=== PATIENT | female | born 1990 | race Caucasian/White ===

== ENCOUNTER 2019-07-04 11:04 | Emergency (ER) | payer OTHER ==
--- NOTE | 2019-07-04 18:33 | EDM.PDOC ---
ED HPI GENERAL MEDICAL PROBLEM - General Chief Complaint: General Stated Complaint: CHEST PAIN, FEVER, CHILL Time Seen by Provider: 07/04/19 11:13 Source of Information: Reports: Patient - History of Present Illness INITIAL COMMENTS - FREE TEXT/NARRATIVE: Patient visiting family with history of developing cold symptoms five days ago that have worsened over past 24 hours. Hving pain in lower anterior ribs with coughing initially and now even at rest. Has productive cough and generalized achiness. No flu vaccine this year. Cough productive of green phlegm. Onset: Gradual, Other (June 30) Duration: Day(s): (5 Days), Getting Worse Location: Reports: Chest Quality: Reports: Sharp Severity: Moderate Improves with: Reports: Rest Worsens with: Reports: Movement Context: Reports: Other (Frequent coughing spells) Associated Symptoms: Reports: Cough, Fever/Chills, Malaise Treatments [employer]ATORY ASSISTANT: Reports: NSAIDS, Other (see below) (Mucinex) Bilateral Abdomen Pain Score (Numeric/FACES): 8 - Related Data Allergies Allergy/AdvReac Type Severity Reaction Status Date / Time No Known Allergies Allergy Verified 07/04/19 18:39 Social & Family History - Tobacco Use Smoking Status *Q: Former Smoker ED ROS GENERAL - Review of Systems Review Of Systems: See Below Constitutional: Reports: Fever, Chills, Malaise HEENT: Reports: Rhinitis Respiratory: Reports: Wheezing, Cough, Sputum Cardiovascular: Reports: Chest Pain. Denies: Palpitations, Syncope Endocrine: Reports: Fatigue ED EXAM, GENERAL - Physical Exam Exam: See Below Exam Limited By: No Limitations General Appearance: Alert, No Apparent Distress Ears: Normal External Exam, Normal Canal, Hearing Grossly Normal, Normal TMs Nose: Normal Inspection, Normal Mucosa Throat/Mouth: Normal Inspection, Normal Lips, Normal Teeth, Normal Gums, Normal Oropharynx, Normal Voice, No Airway Compromise Head: Atraumatic, Normocephalic Neck: Normal Inspection, Non-Tender, Full Range of Motion Cardiovascular: Regular Rate, Rhythm, No Gallop, No Murmur GI/Abdominal: Normal Bowel Sounds, Soft, Non-Tender Extremities: Normal Inspection, Normal Range of Motion, Non-Tender Neurological: Alert, Oriented, Normal Gait Psychiatric: Normal Affect, Normal Mood Skin Exam: No Rash Lymphatic: No Adenopathy Course - Vital Signs Last Recorded V/S: Last Vital Signs Temp 98.9 F 12/27/19 11:34 Pulse 86 07/04/19 11:34 Resp 16 07/04/19 11:34 BP 134/92 H 07/04/19 11:34 Pulse Ox 100 07/04/19 11:34 - Orders/Labs/Meds Labs: Influenza B testing is poistive Meds: Prescribed Tylenol #3 1 tablet every 4-6 hours as, needed for pain/cough Prednisone 40 mg daily for 5 days starting today - Re-Assessments/Exams Free Text/Narrative Re-Assessment/Exam: 07/04/19 18:50 Diagnosis Influenza with wheezing and Chest wall pain Departure - Departure Time of Disposition: 12:05 Disposition: Home, Self-Care 01 Clinical Impression: Influenza - Discharge Information *PRESCRIPTION DRUG MONITORING PROGRAM REVIEWED*: No *COPY OF PRESCRIPTION DRUG MONITORING REPORT IN PATIENT AMARILYS: No Instructions: Influenza, Adult, [id number], Viral Respiratory Infection, Easy -To-Read Referrals: PCP,None [Primary Care Provider] - Forms: ED Department Discharge Care Plan Goals: Follow up in the ER with any worsening symptoms, such as fever increased shortness of breath, pain. Take Tylenol # 3 as needed for cough. Take prednisone daily for 5 days. Sepsis Event Note - Evaluation Sepsis Screening Result: No Definite Risk - Focused Exam Date Exam was Performed: 09/22/19 Time Exam was Performed: 14:41
== END 2019-07-04 12:03 ==
LOC: LB.ED 11:04
DX: J11.1 Influenza due to unidentified influenza virus with other respiratory manifestations (principal); R07.89 Other chest pain; R06.2 Wheezing; Z87.891 Personal history of nicotine dependence
CPT/HCPCS: 87804; 87804-59; 99283